=== PATIENT | male | born 2000 | race African-American/Black ===

== ENCOUNTER 2023-08-28 13:48 | Emergency (ER) | payer OTHER ==
[~2023-08-28] VITALS: Ht 182.9 cm; Wt 95.3 kg
[2023-08-28 15:21] VITALS: BP 108/81; PULSE 84; RESP 18; TEMP 98.5; O2SAT 99
== END 2023-08-28 17:01 | disposition home or self-care (01) ==
LOC: ER 13:48
DX: N52.9 Male erectile dysfunction, unspecified (principal); N43.3 Hydrocele, unspecified
CPT/HCPCS: 76870